=== PATIENT | female | born 1955 | race Caucasian/White ===

== ENCOUNTER → 2020-04-18 09:56 | Outpatient (CLI) | payer MEDICARE, OTHER, SELFPAY ==
--- NOTE | 2020-04-18 | DI.RAD.S_ITS ---
PROCEDURE: XR ABDOMEN 1V INDICATIONS: RENAL CALCULUS TECHNIQUE: One view of the abdomen acquired. COMPARISON: [facility], CR, XR ABDOMEN 1 VIEW, 03/24/2019, 11:09. FINDINGS: Surgical changes and devices: Several low pelvic surgical clips noted.. Bowel: Bowel gas pattern is normal. Soft tissues: No suspicious abdominal calcifications. Visualized solid organ contours appear normal in size. Bones: No suspicious bony lesions. IMPRESSION: A urinary tract stone is not seen. Several low pelvic phleboliths are noted bilaterally, greater on the left than the right, but a definite urinary tract stone is not seen. Dictated by: Bruno Henning M.D. on 04/18/2020 at 11:24 Approved by: Bruno Henning M.D. on 04/18/2020 at 11:25
== END ==
PROVIDERS: Family Provider Family Medicine; PCP Family Medicine; Referring Provider Urology; Visit Provider Urology
DX: N20.0 Calculus of kidney (principal); I87.8 Other specified disorders of veins
CPT/HCPCS: 74018

== ENCOUNTER → 2020-04-25 09:44 | Outpatient (CLI) | payer MEDICARE, OTHER, SELFPAY ==
--- NOTE | 2020-04-25 | DI.CT.S_ITS ---
PROCEDURE: CT SINUS SCREEN WO CON INDICATIONS: Chronic pansinusitis TECHNIQUE: Noncontrast 3.0 mm axial images acquired from the frontal sinuses to the mid-sella, with coronal and sagittal reformats. For radiation dose reduction, the following was used: automated exposure control, adjustment of mA and/or kV according to patient size. COMPARISON: [facility], CT, SINUS SCREENING WO CONTRAST, 12/29/2011, 7:54. FINDINGS: Image quality: Excellent. Maxillary Sinuses: No bony remodeling or destruction. There is a mucous retention cyst along the lateral aspect of the right maxillary sinus. Mild mucosal thickening is seen within the inferior maxillary sinuses. Ethmoid Air Cells: No bony remodeling or destruction. Sinuses are clear. Sphenoid Sinuses: No bony remodeling or destruction. Sinuses are clear. Frontal Sinuses: No bony remodeling or destruction. Moderate mucosal thickening is seen within the right maxillary sinus, which is most prominent inferiorly. No significant left frontal sinus disease is seen. Ostiomeatal Complexes: Ostiomeatal complexes are patent, yet they are constitutionally narrowed. A Yair air cell can be seen on the left. Miscellaneous: Visualized intra-orbital contents are normal. No antonella bullosa or paradoxical turbinate curvature. There is mild S shaped nasal septal deviation. Scrutiny is given to the temporomandibular joints. To the limits of this CT study, no significant TMJ abnormality is detected. IMPRESSION: Paranasal sinus disease is seen, which is most prominent within the right frontal sinus. Constitutionally narrowed ostiomeatal complexes. Dictated by: Augustine Urrutia M.D. on 04/25/2020 at 9:08 Approved by: Augustine Urrutia M.D. on 04/25/2020 at 9:11
== END ==
PROVIDERS: Family Provider Family Medicine; PCP Family Medicine; Referring Provider Otolaryngology; Visit Provider Otolaryngology
DX: J32.4 Chronic pansinusitis (principal)
CPT/HCPCS: 70486